=== PATIENT | female | born 1965 | race Caucasian/White ===

== ENCOUNTER 2017-05-05 18:24 | Emergency (ER) | payer OTHER ==
[~2017-05-05] VITALS: Ht 162.6 cm; Wt 84.7 kg
[~2017-05-05 18:24] MED LIST: ATOR40TA49 PO; CARD120T4 PO; CLOP75 PO; ECOT81TA2 PO; HYDR-3580 PO; METO25CR PO; PROT40TA PO
[2017-05-05 18:38] VITALS: BP 158/75; PULSE 73; RESP 16; TEMP 98.1; O2SAT 97
[2017-05-05] MEDS ORDERED: KETOROLAC TROMETHAMINE 60 MG/2 ML (IM) VIAL IM ONE (19:15)
[2017-05-05] MEDS ORDERED: DEXAMETHASONE SOD PHOS 20 MG/5 ML VIAL IM ONE (19:15)
[2017-05-05] MEDS ORDERED: ASPI81CH7 CHEW (19:30)
[2017-05-05] MEDS ORDERED: ATOR40TA16 PO (19:30)
--- NOTE | 2017-05-05 19:31 | PD ---
HPI Chief Complaint: Musculoskeletal Complaint Time Seen by Provider: 19:06 Travel History International Travel<30 days: No Contact w/Intl Traveler<30days: No Traveled to known affect area: No History of Present Illness HPI 41-year-old female that presents to the ED for evaluation of right shoulder pain with no injury. Per patient she's had this since Monday. Progressively getting worse. Per patient the pain became more severe today. That the pain is 8 out of 10 and gets worse with any movement and touch. Denies any trauma. Per patient the pain initially was more on the side and was bearable but now is more severe. She has not seen anybody for this. History of arthritis but no previous surgery or injury to the shoulder. Allergies to codeine and hydrocodone. Denies any numbness, tingling, weakness. Per patient she is not sure if this is a pinched never something else. Hasn't taken anything for this. Patient is mainly concerned what is going on. No history of gout. No swelling. PFSH Past Medical History Hx Anticoagulant Therapy: Yes (162mg asa) Arthritis: Yes Autoimmune Disease: No Cancer: No Cardiovascular Problems: Yes ([place]) High Cholesterol: Yes Diminished Hearing: No Endocrine: No Genitourinary: No Hypertension: Yes Immune Disorder: No Musculoskeletal: Yes (CHRONIC LEFT SHOULDER PAIN) Neurologic: No Psychiatric: No Reproductive: No Respiratory: No Immunizations Current: Yes ?: Not LMP: 04/20/17 : 5 Para: 4 Past Surgical History Abdominal Surgery: Yes (APPENDECTOMY ) Appendectomy: Yes Social History Alcohol Use: Yes ("SOCIAL") Tobacco Use: Yes (1/2 pack a day, over 15 years) Substance Use: No Allergies-Medications (Allergen,Severity, Reaction): Coded Allergies: hydrocodone (Unverified Allergy, Unknown, nausea, 05/05/17) codeine (Unverified Adverse Reaction, Intermediate, N/V, 05/05/17) Reported Meds & Prescriptions Reported Meds & Active Scripts Active Tramadol (Tramadol HCl) 50 Mg Tab 50 Mg PO Q6H PRN Diclofenac Sodium DR (Diclofenac Sodium) 75 Mg Tabdr 75 Mg PO BID PRN Reported Atorvastatin (Atorvastatin Calcium) 40 Mg Tab 40 Mg PO HS Aspirin Children's (Aspirin) 81 Mg Chew 162 Mg CHEW DAILY Review of Systems Except as stated in HPI: all other systems reviewed are Neg Physical Exam Narrative GENERAL: SKIN: Warm and dry. HEAD: Atraumatic. Normocephalic. EYES: Pupils equal and round. No scleral icterus. No injection or drainage. ENT: No nasal bleeding or discharge. Mucous membranes pink and moist. Tongue is midline. No uvula deviation. NECK: Trachea midline. No JVD. CARDIOVASCULAR: Regular rate and rhythm. RESPIRATORY: No accessory muscle use. Clear to auscultation. Breath sounds equal bilaterally. GASTROINTESTINAL: Abdomen soft, non-tender, nondistended. Hepatic and splenic margins not palpable. MUSCULOSKELETAL: Extremities without clubbing, cyanosis, or edema. No obvious deformities. Full range of motion of the upper and lower extremities bilaterally. With the exception of the right shoulder which she has pain with any abduction especially past 90. Very tender and sensitive to touch on the right shoulder. Minimal swelling if any noted. 2+ pulses bilaterally on the hands and feet bilaterally. Sensation intact laterally. Neurovascular intact. NEUROLOGICAL: Awake and alert. No obvious cranial nerve deficits. Motor grossly within normal limits. Five out of 5 muscle strength in the arms and legs. Normal speech. PSYCHIATRIC: Appropriate mood and affect; insight and judgment normal. Data Data Last Documented VS Vital Signs Date Time Temp Pulse Resp B/P (MAP) Pulse Ox O2 Delivery O2 Flow Rate FiO2 05/05/17 18:38 98.1 73 16 158/75 (102) 97 Orders Orders Shoulder, Complete (>2vws) (05/05/17 19:15) Ice/Cold Pack (05/05/17 19:15) Ketorolac Inj (Toradol Inj) (05/05/17 19:15) Dexamethasone Inj (Decadron Inj) (05/05/17 19:15) MDM Medical Decision Making Medical Screen Exam Complete: Yes Emergency Medical Condition: Yes Medical Record Reviewed: Yes Interpretation(s) X-ray of the right shoulder show no sign of bony injury. Differential Diagnosis Shoulder pain versus muscle strain versus bursitis versus tendinitis Narrative Course 51-year-old female that presents to the ED for evaluation of shoulder pain. Patient was properly examined and was found to have signs and symptoms which appear to be consistent with likely bursitis. Unclear etiology however. She does have pain with any movement of the shoulder and she is very sensitive to touch in the shoulder itself. No sign of infection or deformity. Recommend x- ray to rule out any sign of anything else. X-ray was done and was negative for this. Patient was reassured. This time she will be treated for this with prescriptions for diclofenac sodium and tramadol to help with symptoms. Recommend close follow with orthopedic doctor for further management including injections if needed. Follow with PCP. See ED worsening symptoms. Diagnosis Primary Impression: Acute shoulder bursitis Qualified Codes: M75.51 - Bursitis of right shoulder Referrals: Cain Ontiveros MD Patient Instructions: General Instructions Additional Instructions: Take medications as prescribed. Follow-up with PCP. See ED for any worsening symptoms. Do not drink or drive while taking pain medication. Apply ice or heat as needed for pain Med/Other Pt SpecificInfo: Prescription(s) given Scripts Tramadol (Tramadol) 50 Mg Tab 50 MG PO Q6H Y for PAIN, #14 TAB 0 Refills Prov: Ryan Loyd MD 05/05/[address] (Diclofenac Sodium DR) 75 Mg Tabdr 75 MG PO BID Y for PAIN SCALE 1 TO 10, #20 TAB 0 Refills Prov: Ryan Loyd MD 05/05/17 Disposition: 01 DISCHARGE HOME Condition: Stable Bob Lr May 05, 2017 19:31
[2017-05-05] MEDS ORDERED: TRAM50TA PO ×2 (19:36→19:40)
[2017-05-05] MEDS ORDERED: DICL75TA PO (19:36)
--- NOTE | 2017-05-05 20:07 | RADRPT ---
EXAM DATE/TIME: 05/05/2017 19:25 [facility] COMPARISON: No previous studies available for comparison. INDICATIONS : Right shoulder pain. No known injury. MEDICAL HISTORY : Hypertension. Hypercholesterolemia SURGICAL HISTORY : Appendectomy. ENCOUNTER: Initial ACUITY: 4 - 6 days PAIN SCORE: 7/10 LOCATION: Right upper extremity FINDINGS: Multiple view examination of the right shoulder demonstrates no evidence of fracture or dislocation. The glenohumeral and acromioclavicular joints are maintained. There is a limited range of motion be tween internal and external rotation with all 3 views demonstrating a predilection for internal rotat ion. The visualized right upper ribs are intact. Bony mineralization is normal. Metallic density s uperimposed upon the shoulder from bra hardware. CONCLUSION: 1. No fracture or dislocation seen 2. Limited range of motion with the humerus in internal rotation on 3 frontal views. Ketan Morris MD on May 05, 2017 at 20:03 Board Certified Radiologist. This report was verified electronically.
[2017-05-05] MEDS ORDERED: PRED20 PO (20:08)
== END 2017-05-05 20:07 | disposition home or self-care (01) ==
LOC: PHEFT 18:24
DX: M75.51 Bursitis of right shoulder (principal); E78.00 Pure hypercholesterolemia, unspecified; F17.200 Nicotine dependence, unspecified, uncomplicated
CPT/HCPCS: 73030; 96374; 96375; 99283; J1100; J1885